=== PATIENT | female | born 1940 | race Caucasian/White ===

== ENCOUNTER → 2021-10-27 | Outpatient (CLI) | payer MEDICARE, OTHER ==
[~2021-10-27] MED LIST: AUGMENTIN 500-1 EACH PO; CEFUROXIME500 MG PO; ELIQUIS 2.5 MG2.5 MG PO; LEVOXYL100 MCG PO; LEVOXYL112 MCG PO; LOPRESSOR 25 MG25 MG PO; MULTAQ400 MG PO; PHENERGAN 12.12.5 M1 PO; PLAQUENIL200 MG PO; PROAIR DIGIHAL90 MCG INH; SINGULAIR10 MG PO
== END ==
LOC: HEART 5 15:29
DX: I48.92 Unspecified atrial flutter (principal); I48.0 Paroxysmal atrial fibrillation; R06.02 Shortness of breath; R00.1 Bradycardia, unspecified

== ENCOUNTER → 2021-11-22 | Outpatient (CLI) | payer MEDICARE, OTHER ==
[~2021-11-22] MED LIST changes: +ELIQUIS2.5 MG PO; +FLONASE 0.05% N16 GM; +HYDROCODON-ACE1 EAC4 PO; +LEVOFLOXACIN500 MG PO; +MULTAQ 400 MG400 MG PO
[2021-11-22 13:54] LABS: RED BLOOD COUNT 3.37 M/UL (4.00-5.10); WHITE BLOOD COUNT 8.7 K/UL (4.5-11.0)
== END ==
LOC: LAB 13:31
PROVIDERS: Internal Medicine Cardiovascular Disease
DX: I49.5 Sick sinus syndrome (principal); R06.02 Shortness of breath; I10 Essential (primary) hypertension; I48.91 Unspecified atrial fibrillation; Z20.822 Contact with and (suspected) exposure to COVID-19
CPT/HCPCS: 36415; 71046; 80048; 85025; U0003

== ENCOUNTER 2021-11-24 11:32 | Outpatient (CLI) | payer MEDICARE, OTHER ==
[~2021-11-24] VITALS: Ht 165.1 cm; Wt 39.9 kg
[~2021-11-24 11:32] MED LIST changes: -ELIQUIS2.5 MG PO; -FLONASE 0.05% N16 GM; -HYDROCODON-ACE1 EAC4 PO; -LEVOFLOXACIN500 MG PO; -MULTAQ 400 MG400 MG PO
[2021-11-24] MEDS ORDERED: LEVOFLOXACIN500 MG PO (15:28)
[2021-11-24] MEDS ORDERED: HYDROCODON-ACE1 EAC4 PO (15:28)
[2021-11-24] MEDS ORDERED: PLAQUENIL200 MG PO (17:18)
[2021-11-24] MEDS ORDERED: FLONASE 0.05% N16 GM (17:21)
[2021-11-24] MEDS ORDERED: ELIQUIS2.5 MG PO (17:35)
[2021-11-24] MEDS ORDERED: MULTAQ 400 MG400 MG PO (17:36)
== END 2021-11-25 12:44 | disposition home or self-care (01) ==
LOC: CATH 11:32 → PROG CARE 11:32 → CATH 13:30 → PROG CARE 16:18 → CATH 11-25 12:44
DX: I49.5 Sick sinus syndrome (principal); I48.0 Paroxysmal atrial fibrillation; I10 Essential (primary) hypertension; E78.5 Hyperlipidemia, unspecified; E03.9 Hypothyroidism, unspecified; K21.9 Gastro-esophageal reflux disease without esophagitis; Z79.01 Long term (current) use of anticoagulants; Z79.899 Other long term (current) drug therapy; Z20.822 Contact with and (suspected) exposure to COVID-19
CPT/HCPCS: 33208; 71045; 93005; 99152; 99153; C1898; C2621; J0360; J1644; J2250; J3010; J3370; J7040; J7050; J7070